=== PATIENT | female | born 1960 | race Caucasian/White ===

== ENCOUNTER 2017-01-17 17:03 | Observation (INO) | payer OTHER ==
--- NOTE | ~2017-01-17 | HP ---
Unit #: [id number] #: [id number] Patient: TATO JOE [id number] [address] [address] [id number] MR#: [id number] NAME: TATO JOE ROOM: 71014 Age: 56 Sex: F Admission Date: 01/17/2017 : 1960 Attending Physician: Marina Joyner M.D. Primary Care Physician: Yousif Rosales M.D. HISTORY AND PHYSICAL CHIEF COMPLAINT Abdominal pain. HISTORY OF PRESENT ILLNESS The patient is a 56-year-old female with past medical history of chronic pancreatitis, hypertension, hyperlipidemia, migraine headaches, herpes zoster, B12 deficiency, skin cancer, depression, who presented to the emergency department for evaluation of the above. The patient states she has had a 2- to 3-day history of abdominal pain. She states that it is in the upper abdomen. She describes it as "sharp," it is constant in nature, there are no exacerbating or alleviating factors. It has been increasing in intensity. She states that it is similar to when she has had pancreatitis in the past. She denies any fever. She has had chills. She denies any nausea or vomiting. She states that her bowel movements are normal. Amylase and lipase were normal. She was given morphine and Zofran as well as a liter of normal saline. She is being admitted to [facility] for evaluation and further treatment. PAST MEDICAL HISTORY 1. Admission to [facility] 12/12 through 12/15/2016 for vugys-rp-uiexqze recurrent pancreatitis. She underwent ERCP with stent placement during that admission. 2. Chronic pancreatitis followed by Dr. Balderas. 3. Hypertension. 4. Hyperlipidemia. 5. Migraine headaches. 6. Herpes zoster. 7. B12 deficiency. 8. Skin cancer. 9. Depression. PAST SURGICAL HISTORY 1. Excision of skin cancer. 2. Hysterectomy. 3. Lipoma removal. 4. Laparoscopic cholecystectomy. 5. ERCP with pancreatic stent placement. ALLERGIES 1. Triptans. 2. Naproxen. Unit #: [id number] #: [id number] Patient: TATO JOE 3. Tramadol. 4. Nitrofurantoin. 5. Zomig. HOME MEDICATIONS 1. Neurontin 800 mg t.i.d. 2. Amitriptyline 50 mg h.s. 3. Toprol XL 50 mg daily. 4. Amlodipine 10 mg daily. 5. Phenergan 25 mg t.i.d. p.r.n. 6. Fenofibrate three tablets daily. 7. Hydrocodone/acetaminophen 7.5/325 q.6 h. p.r.n. SOCIAL HISTORY The patient lives with her son and her who is a explosives truck driver. She quit smoking. There is no alcohol use. CODE STATUS is a FULL CODE. FAMILY HISTORY Notable for her mother having hypertension. REVIEW OF SYSTEMS A complete review of systems is negative except as indicated in the HPI. PHYSICAL EXAMINATION VITAL SIGNS: Temperature 98.2, pulse 86, respirations 16, blood pressure 181/97, oxygen saturation 98% on room air. GENERAL: The patient is a female who is awake and alert in no acute distress. HEENT: Head is atraumatic. Mucous membranes are dry. NECK: Supple. Trachea is midline. LUNGS: Clear to auscultation bilaterally with no increased work of breathing. HEART: Regular rate and rhythm. ABDOMEN: Soft. She is tender to palpation in the epigastric area. Bowel sounds present in all four quadrants. EXTREMITIES: Nontender with no pedal edema. NEUROLOGIC: Patient is awake and alert. She follows commands. PSYCHIATRIC: Mood and affect are normal. Patient is cooperative. SKIN OF EXAMINED AREAS: Warm and dry. DIAGNOSTIC STUDIES LABORATORY: Complete blood count is completely normal. Comprehensive metabolic panel notable for sodium 134, potassium 3.4, amylase 2 and lipase 14. ASSESSMENT The patient is a 56-year-old female with: 1. Abdominal pain likely secondary to #2. 2. Chronic pancreatitis. 3. Hypokalemia. 4. Hypertension. 5. Hyperlipidemia. 6. Migraine headaches. 7. Herpes zoster. 8. B12 deficiency. 9. Skin cancer, status post excision. 10. Depression. 11. Former smoker. Unit #: [id number] #: [id number] Patient: TATO JOE PLAN 1. Admit for observation to intermediate level. 2. N.p.o. except medications. 3. Normal saline at 125 mL per hour. 4. P.r.n. morphine. 5. P.r.n. Zofran. 6. Check EKG and cardiac enzymes. 7. Check magnesium level. 8. Potassium magnesium protocol. 9. Check urinalysis with culture and sensitivity. 10. Consult Dr. Balderas regarding recurrent pancreatitis. 11. Repeat labs in the morning including magnesium. 12. SCDs for DVT prophylaxis. 13. Additional workup and consultants based on above. Dictated by Angeles Glass/sammy TD: 01/17/2017 20:40 JOB #: [id number] HISTORY AND PHYSICAL X Marina Joyner MD X HISTORY AND PHYSICAL
--- NOTE | ~2017-01-17 | DS ---
Unit #: [id number] #: [id number] Patient: TATO JOE [id number] [address] [address] [id number] I MR#: [id number] NAME: TATO JOE ROOM: 323 Age: 56 Sex: F Admission Date: 01/17/2017 : 1960 Discharge Date: 01/19/2017 Attending Physician: Remi Farooq M.D. Primary Care Physician: Yousif Rosales M.D. DISCHARGE SUMMARY REASON FOR ADMISSION Abdominal pain, acute on chronic pancreatitis. HISTORY OF PRESENT ILLNESS/HOSPITAL COURSE The patient is a 56-year-old female, admitted secondary to abdominal pain, acute on chronic pancreatitis exacerbation. While she was admitted, she was placed on IV fluids. Consultation was placed to Dr. Balderas for Gastroenterology Services as he had seen the patient in the past, he recommended only conservative medical management. Her diet was gradually transitioned from clear into regular, which she tolerated well. She continually received Dilaudid IV while she was here. She likely exhibits underlying narcotic dependence and/or drug-seeking behavior. In past admissions once her IV Dilaudid was discontinued, subsequently she has either left AMA or left under similar circumstances. I discussed with her and recommended a transition into regular diet as well as to discontinue her IV pain medications. We will give her new prescription for [place] 10/325 one tablet p.o. q.6 p.r.n., it is recommended that she follow up as an outpatient with pain management for ongoing care. FINAL DISCHARGE DIAGNOSES 1. Acute on chronic pancreatitis. 2. Abdominal pain. 3. Hypertension. 4. Hyperlipidemia. 5. Migraine history. 6. Herpes zoster. 7. B12 deficiency. 8. Prior history of skin cancer. 9. Depression. 10. Narcotic-seeking/drug-seeking behavior. 11. Endoscopic retrograde cholangiopancreatography in 12/2016 with stent placement. 12. Obesity. DIAGNOSTIC STUDIES LABORATORY RESULTS: Final discharge laboratory studies include Unit #: [id number] #: [id number] Patient: TATO JOE unremarkable creatinine, liver profile, as well as lipase which is 11. CBC shows a hemoglobin of 12.1, white count of 7.7. DISCHARGE MEDICATIONS [place] 10/325 one tablet p.o. q.6 p.r.n. #30 prescription given, fenofibrate three tablets p.o. daily, Toprol-XL 50 mg p.o. daily, Norvasc 10 mg p.o. daily, Phenergan 25 mg p.o. q.8 p.r.n., Elavil 50 mg p.o. q.h.s., and Neurontin 800 mg p.o. q.8. DISCHARGE CONDITION Stable. DISCHARGE DISPOSITION Home. Long-term prognosis, poor. Dictated by... Remi Farooq M.D. REYMUNDO/teodora TD: 01/20/2017 01:45 JOB #: [id number] DISCHARGE SUMMARY X Remi Farooq MD X DISCHARGE SUMMARY
--- NOTE | ~2017-01-17 | EKG ---
PATIENT: TATO JOE UNIT #: [id number] Ventricular Rate: 79 BPM Atrial Rate: 79 BPM P-R Interval: 162 ms QRS Duration: 88 ms Q-T Interval: 400 ms QTC Calculation(Bezet): 458 ms P Chaumont: 64 degrees Calculated R Chaum[place]: 52 degrees Calculated T Chaumont: 57 degrees Diagnosis Line: Normal sinus rhythm Diagnosis Line: Minimal voltage criteria for LVH, may be normal Diagnosis Line: variant Diagnosis Line: Borderline ECG Diagnosis Line: When compared with ECG of 07-DEC-2016 22:04, Diagnosis Line: No significant change was found Diagnosis Line: Confirmed by CARMEN BRAUN MD ([id number]) on Diagnosis Line: 01/18/2017 11:26:25 AM INTERPRETING MD: APARNA DEAL
[2017-01-17 16:57] LABS: BASOPHIL# 0.1 X10e3 (0-0.3); BASOPHIL% 0.7 % (0-2.5); DIFF IND NO; EOSINOPHIL% 0.5 % (0.0-7.0); HEMATOCRIT 39.1 % (35.0-45.0); LYMPHOCYTE# 2.1 X10e3 (1.0-3.5); LYMPHOCYTE% 22.6 % (17.0-45.0); MEAN CELL VOLUME 93.2 FL (83-96); MEAN CORPUSCULAR HGB CONC 33.3 g/dL (30-36); MEAN PLATELET VOLUME 6.7 FL (6.5-11.5); MONOCYTE# 0.3 X10e3 (0-1.0); MONOCYTE% 3.7 % (3.0-12.0); NEUTROPHIL# 6.6 X10e3 (1.5-7.1); NEUTROPHIL% 72.5 % (40-75); PLATELET COUNT 395 X10e3 (140-420); WHITE BLOOD COUNT 9.2 X10e3 (4.0-10.5)
[~2017-01-17 17:03] MED LIST: ALPRAZOLAM PO; AMITRIPTYLINE H50 MG PO; AMITRYPTYLINE PO; AMLODIPINE BESY10 MG PO; ASPIRIN81 M2 PO; ATARAX PO; BENTYL20 MG PO; BISACODYL10 MG/SUP3 PR; CATAPRES0.3 MG PO; CELEXA10 MG PO; CREON 101 CA1 PO; CREON DR 3,0001 EACH PO; CYANOCOBALAM1000 MCG PO; DAZIDOX10 MG PO; DOCUSATE SODIU100 MG PO; FENOFIBRATE67 MG PO; FIORINAL CAPSUL1 CAP PO; FLEXERIL10 M1 PO; FLEXERIL10 MG PO; GENTLE LAXATIVE10 MG PR; HYDRALAZINE HC100 MG PO; HYDROCODON-ACE1 EAC7 PO; HYDROCODON-ACE1 EAC9 PO; HYDROCODONE-APA1 T54 PO; HYDROXYZINE HCL25 M1 PO; IBUPROFEN; IBUPROFEN800 MG PO; KENALOG63 GM TOP; LEVAQUIN750 MG PO; LOMOTIL TABLET1 TAB PO; LOPRESSOR PO; MAXZIDE 37.5 M1 EACH PO; MAXZIDE-25 MG T1 TAB PO; METOPROLOL SUCC50 MG PO; MOTRIN20 MG/ML PO; NEURONTIN PO; NEURONTIN300 MG PO; NEURONTIN600 MG DOB; NEURONTIN600 MG PO; NEURONTIN800 MG PO; NICODERM C1 PATCH .1 TD; NORVASC PO; NORVASC10 MG PO; OXYCODONE HCL5 M1 PO; PERCOCET 5-3251 TAB PO; PERCOCET5/325 PO; PHENERGAN25 M1 DOB; PHENERGAN25 M1 PO; PRAVACHOL PO; PRINIVIL20 M1 PO; PROTONIX PO; ROXICODONE5 M1 PO; ROXICODONE5 MG PO; TOPROL XL50 MG PO; TRIAMTERENE PO; TRIAMTERENE-HCT1 TA8 PO; VOLTAREN75 MG PO; XANAX0.5 MG PO
[2017-01-17 17:41] LABS: ALKALINE PHOSPHATASE 83 U/L (32-92); ALT (SGPT) 9 U/L (10-40); AMYLASE 2 U/L (0-46); AST (SGOT) 16 U/L (10-42); BILIRUBIN, DIRECT 0.1 mg/dL (0.0-0.2); BILIRUBIN,INDIRECT 0.2 mg/dL (0.0-0.9); BILIRUBIN,TOTAL 0.3 mg/dL (0.2-2.0); BLOOD UREA NITROGEN 5 mg/dL (9-23); BUN/CREATININE RATIO 8.33; CALCIUM SERUM 9.1 mg/dL (8.4-10.2); CARBON DIOXIDE 24 mmol/L (22-31); CHLORIDE 101 mmol/L (100-111); CREATININE SERUM 0.6 mg/dL (0.6-1.4); GLOM FILT RATE Estimated ABOVE60 mL/min (>60); GLUCOSE FASTING 99 mg/dL (70-110); LIPASE 14 U/L (22-51); POTASSIUM 3.4 mmol/L (3.5-5.1); SODIUM 134 mmol/L (135-145)
[2017-01-17 20:21] LABS: URINE SOURCE CLEAN CATCH
[2017-01-17 20:52] LABS: MAGNESIUM 1.8 mg/dL (1.6-3.0)
[2017-01-17 21:28] LABS: URINE BILIRUBIN NEG (NEG); URINE BLOOD NEG (NEG); URINE GLUCOSE NORM (NORM); URINE KETONE NEG (NEG); URINE LEUKOCYTE ESTERASE NEG (NEG); URINE NITRATE NEG (NEG); URINE PH 6.5 (5-8); URINE PROTEIN NEG (NEG); URINE SPECIFIC GRAVITY 1.015 (1.003-1.035); URINE UROBILINOGEN NORM (NORM)
[2017-01-17 21:30] LABS: URINE APPEARANCE CLEAR; URINE COLOR YELLOW
[2017-01-17 21:31] LABS: CULTURE INDICATED? NO
[2017-01-18 03:48] LABS: CK TOTAL 28 IU/L (26-140)
[2017-01-18 07:01] LABS: HEMATOCRIT 35.1 % (35.0-45.0); HEMOGLOBIN 11.6 gm/dL (12.0-16.0); MEAN CORPUSCULAR HEMOGLOBIN 31.1 PG (28-34); MEAN CORPUSCULAR HGB CONC 33.1 g/dL (30-36); MEAN PLATELET VOLUME 6.8 FL (6.5-11.5); RED BLOOD COUNT 3.74 X10e (3.90-5.30); WHITE BLOOD COUNT 6.5 X10e3 (4.0-10.5)
[2017-01-18 08:15] LABS: ALBUMIN SERUM 3.1 g/dL (3.5-5.0); ALKALINE PHOSPHATASE 66 U/L (32-92); ALT (SGPT) 9 U/L (10-40); AST (SGOT) 13 U/L (10-42); BILIRUBIN,TOTAL 0.4 mg/dL (0.2-2.0); BLOOD UREA NITROGEN <5 mg/dL (9-23); BUN/CREATININE RATIO 8.33; CALCIUM SERUM 8.3 mg/dL (8.4-10.2); CARBON DIOXIDE 23 mmol/L (22-31); CHLORIDE 110 mmol/L (100-111); CREATININE SERUM 0.6 mg/dL (0.6-1.4); GLOM FILT RATE Estimated ABOVE60 mL/min (>60); GLUCOSE FASTING 80 mg/dL (70-110); MAGNESIUM 1.8 mg/dL (1.6-3.0); POTASSIUM 3.6 mmol/L (3.5-5.1); PROTEIN TOTAL SERUM 5.4 g/dL (6.0-8.3); SODIUM 140 mmol/L (135-145)
[2017-01-18 09:01] LABS: CK TOTAL 27 IU/L (26-140)
[2017-01-18 18:15] LABS: AMPHETAMINE NEG (NEG); BARBITURATES NEG (NEG); BENZODIAZEPINES NEG (NEG); COCAINE NEG (NEG); MARIJUANA NEG (NEG); OPIATES POS (NEG); TRICYCLIC ANTIDEPRESSANTS POS (NEG); U METHADONE NEG (NEG)
[2017-01-19 06:28] LABS: HEMATOCRIT 36.7 % (35.0-45.0); HEMOGLOBIN 12.1 gm/dL (12.0-16.0); MEAN CELL VOLUME 94.5 FL (83-96); MEAN CORPUSCULAR HEMOGLOBIN 31.3 PG (28-34); MEAN CORPUSCULAR HGB CONC 33.1 g/dL (30-36); MEAN PLATELET VOLUME 7.3 FL (6.5-11.5); RED BLOOD COUNT 3.88 X10e (3.90-5.30); RED CELL DISTRIBUTION WIDTH 14.9 % (11.0-15.5); WHITE BLOOD COUNT 7.7 X10e3 (4.0-10.5)
[2017-01-19 07:02] LABS: ALBUMIN SERUM 3.5 g/dL (3.5-5.0); ALKALINE PHOSPHATASE 67 U/L (32-92); ALT (SGPT) 7 U/L (10-40); AST (SGOT) 13 U/L (10-42); BILIRUBIN,TOTAL 0.4 mg/dL (0.2-2.0); BLOOD UREA NITROGEN 5 mg/dL (9-23); BUN/CREATININE RATIO 7.14; CALCIUM SERUM 9.2 mg/dL (8.4-10.2); CARBON DIOXIDE 26 mmol/L (22-31); CHLORIDE 108 mmol/L (100-111); CREATININE SERUM 0.7 mg/dL (0.6-1.4); GLOM FILT RATE Estimated ABOVE60 mL/min (>60); GLUCOSE FASTING 79 mg/dL (70-110); LIPASE 11 U/L (22-51); POTASSIUM 4.2 mmol/L (3.5-5.1); PROTEIN TOTAL SERUM 6.1 g/dL (6.0-8.3); SODIUM 142 mmol/L (135-145)
== END 2017-01-19 13:45 | disposition home or self-care (01) ==
LOC: CED 17:03 → CEDOF 19:41 → C3A PCU 21:41
PROVIDERS: Emergency Medicine; Family Medicine
DX: K85.90 Acute pancreatitis without necrosis or infection, unspecified (principal); K86.1 Other chronic pancreatitis; R10.9 Unspecified abdominal pain; I10 Essential (primary) hypertension; E78.5 Hyperlipidemia, unspecified; B02.9 Zoster without complications; E53.8 Deficiency of other specified B group vitamins; Z85.828 Personal history of other malignant neoplasm of skin; F32.9 Major depressive disorder, single episode, unspecified; E87.6 Hypokalemia; Z76.5 Malingerer [conscious simulation]; E66.9 Obesity, unspecified; Z87.891 Personal history of nicotine dependence; Z90.49 Acquired absence of other specified parts of digestive tract; Z90.710 Acquired absence of both cervix and uterus
CPT/HCPCS: 36415; 80048; 80053; 80076; 80307; 81003; 82150; 82550; 83690; 83735; 84132; 84484; 85025; 85027; 93005; 96361; 96365; 96366; 96374; 96375; 96376; 99285; G0378; J1170; J2270; J2405; J2543

== ENCOUNTER 2017-01-19 16:05 | Emergency (ER) | payer OTHER ==
[2017-01-19 16:22] LABS: BASOPHIL% 0.5 % (0-2.5); EOSINOPHIL# 0.2 X10e3 (0-0.7); EOSINOPHIL% 2.5 % (0.0-7.0); HEMATOCRIT 41.1 % (35.0-45.0); HEMOGLOBIN 13.5 gm/dL (12.0-16.0); LYMPHOCYTE# 2.3 X10e3 (1.0-3.5); LYMPHOCYTE% 27.1 % (17.0-45.0); MEAN CELL VOLUME 94.3 FL (83-96); MEAN CORPUSCULAR HGB CONC 32.9 g/dL (30-36); MEAN PLATELET VOLUME 7.4 FL (6.5-11.5); MONOCYTE# 0.4 X10e3 (0-1.0); MONOCYTE% 4.2 % (3.0-12.0); NEUTROPHIL# 5.6 X10e3 (1.5-7.1); NEUTROPHIL% 65.7 % (40-75); PLATELET COUNT 374 X10e3 (140-420); RED BLOOD COUNT 4.36 X10e (3.90-5.30); RED CELL DISTRIBUTION WIDTH 14.7 % (11.0-15.5); WHITE BLOOD COUNT 8.5 X10e3 (4.0-10.5)
[2017-01-19 16:29] LABS: DIFF IND NO
[2017-01-19 17:08] LABS: ALKALINE PHOSPHATASE 79 U/L (32-92); ALT (SGPT) 10 U/L (10-40); AST (SGOT) 17 U/L (10-42); BILIRUBIN, DIRECT 0.1 mg/dL (0.0-0.2); BILIRUBIN,INDIRECT 0.4 mg/dL (0.0-0.9); BILIRUBIN,TOTAL 0.5 mg/dL (0.2-2.0); BLOOD UREA NITROGEN 7 mg/dL (9-23); CALCIUM SERUM 9.3 mg/dL (8.4-10.2); CARBON DIOXIDE 25 mmol/L (22-31); CHLORIDE 98 mmol/L (100-111); GLOM FILT RATE Estimated ABOVE60 mL/min (>60); GLUCOSE FASTING 137 mg/dL (70-110); LIPASE 17 U/L (22-51); POTASSIUM 3.4 mmol/L (3.5-5.1); PROTEIN TOTAL SERUM 7.2 g/dL (6.0-8.3); SODIUM 134 mmol/L (135-145)
[2017-01-19 17:09] LABS: AMYLASE 5 U/L (0-46)
== END 2017-01-19 18:56 | disposition home or self-care (01) ==
LOC: CED 16:05
PROVIDERS: Emergency Medicine
DX: K86.1 Other chronic pancreatitis (principal); I10 Essential (primary) hypertension; E78.5 Hyperlipidemia, unspecified; F17.200 Nicotine dependence, unspecified, uncomplicated; Z79.899 Other long term (current) drug therapy; Z88.8 Allergy status to other drugs, medicaments and biological substances; Z88.6 Allergy status to analgesic agent; Z88.5 Allergy status to narcotic agent
CPT/HCPCS: 36415; 80048; 80076; 82150; 83690; 85025; 96361; 96374; 99284; J2405

== ENCOUNTER 2017-02-21 18:28 | Emergency (ER) | payer OTHER ==
--- NOTE | ~2017-02-21 | CT2 ---
[facility] A Service of [facility] RADIOLOGY TEXT RESULTS PATIENT: TATO JOE LOCATION: [facility] : [birth year] UNIT #: [id number] AGE: [address]: Dallsa Bhat MD SEX: F ORDER DR: [id number] [facility] [address] [place], [place] [address] [id number] MR#: [id number] Acc #: [id number] NAME: TATO JOE : 1960 SEX: F STUDY DATE/TIME: 02/21/2017 19:17 UNIT: [facility] ROOM: STUDY DESCRIPTION: CT Abd and Pelv W Cont Attending Physician: Dallas Bhat M.D. Ordering Physician: Dallas Bhat M.D. Primary Care Physician: Yousif Rosales M.D. MEDICAL IMAGING REPORT This report is preliminary unless electronic signature is present EXAM CT abdomen and pelvis with contrast. INDICATION 56-year-old female with abdominal pain today. History of pancreatitis. TECHNIQUE CT of the abdomen and pelvis was performed following administration of IV contrast. Coronal and sagittal reformatted images were obtained. This CT exam was performed with one or more of the following radiation dose reduction techniques: automatic exposure control, adjustment of mA and/or kV according to patient size, and iterative reconstruction. COMPARISON 12/08/2016 FINDINGS There is minimal scarring or atelectasis within the lung bases. Liver, gallbladder, spleen, kidneys and adrenal glands are unremarkable. Stable crescentic fluid collection in the region of the head of the pancreas which may be represent an old pseudocyst given the history of pancreatitis. No evidence for any acute pancreatitis on today's study. Tiny hiatal hernia. PELVIS: Colon is unremarkable. There appears to have been a prior appendectomy. No free fluid. Hysterectomy. Bone windows are unremarkable. IMPRESSION There is no acute intraabdominal or pelvic abnormality. No evidence of acute pancreatitis. [facility] A Service of [facility] RADIOLOGY TEXT RESULTS PATIENT: TATO JOE LOCATION: [facility] : [birth year] UNIT #: [id number] AGE: [address]: Dallas Bhat MD SEX: F ORDER DR: Dictated by... Clement Zuleta M.D. THIS IS AN ELECTRONICALLY VERIFIED REPORT Clement Zuleta M.D. at 02/22/2017 10:04 AM JUANITA/valorie TD: 02/21/2017 23:42 JOB #: [id number] MEDICAL IMAGING REPORT Page 1 of 1 COPY
[2017-02-21 17:34] LABS: BASOPHIL% 0.4 % (0-2.5); EOSINOPHIL# 0.1 X10e3 (0-0.7); EOSINOPHIL% 1.2 % (0.0-7.0); HEMATOCRIT 40.9 % (35.0-45.0); HEMOGLOBIN 13.8 gm/dL (12.0-16.0); LYMPHOCYTE# 2.1 X10e3 (1.0-3.5); LYMPHOCYTE% 25.8 % (17.0-45.0); MEAN CELL VOLUME 94.7 FL (83-96); MEAN CORPUSCULAR HGB CONC 33.8 g/dL (30-36); MEAN PLATELET VOLUME 7.3 FL (6.5-11.5); MONOCYTE# 0.3 X10e3 (0-1.0); NEUTROPHIL# 5.6 X10e3 (1.5-7.1); NEUTROPHIL% 68.6 % (40-75); PLATELET COUNT 375 X10e3 (140-420); RED BLOOD COUNT 4.32 X10e (3.90-5.30); RED CELL DISTRIBUTION WIDTH 14.4 % (11.0-15.5); WHITE BLOOD COUNT 8.2 X10e3 (4.0-10.5)
[2017-02-21 17:39] LABS: DIFF IND NO
[2017-02-21 18:02] LABS: ALBUMIN SERUM 4.2 g/dL (3.5-5.0); ALKALINE PHOSPHATASE 76 U/L (32-92); ALT (SGPT) 11 U/L (10-40); AST (SGOT) 17 U/L (10-42); BILIRUBIN,TOTAL 0.3 mg/dL (0.2-2.0); BLOOD UREA NITROGEN 7 mg/dL (9-23); BUN/CREATININE RATIO 8.75; CALCIUM SERUM 9.3 mg/dL (8.4-10.2); CARBON DIOXIDE 24 mmol/L (22-31); CHLORIDE 98 mmol/L (100-111); CREATININE SERUM 0.8 mg/dL (0.6-1.4); GLOM FILT RATE Estimated 82.5 mL/min (>60); GLUCOSE FASTING 105 mg/dL (70-110); LIPASE 16 U/L (22-51); POTASSIUM 3.8 mmol/L (3.5-5.1); PROTEIN TOTAL SERUM 7.6 g/dL (6.0-8.3); SODIUM 131 mmol/L (135-145)
[2017-02-21 18:03] LABS: BILIRUBIN, DIRECT <0.1 mg/dL (0.0-0.2); BILIRUBIN,INDIRECT 0.2 mg/dL (0.0-0.9)
[2017-02-21 20:33] LABS: URINE SOURCE CLEAN CATCH
[2017-02-21 20:39] LABS: URINE APPEARANCE CLEAR; URINE BILIRUBIN NEG (NEG); URINE BLOOD NEG (NEG); URINE COLOR YELLOW; URINE GLUCOSE NEG (NEG); URINE KETONE NEG (NEG); URINE LEUKOCYTE ESTERASE NEG (NEG); URINE NITRATE NEG (NEG); URINE PROTEIN NEG (NEG); URINE SPECIFIC GRAVITY 1.015 (1.003-1.035); URINE UROBILINOGEN 0.2 MG/DL (NEG)
[2017-02-21 20:44] LABS: CULTURE INDICATED? NO
== END 2017-02-21 21:40 | disposition home or self-care (01) ==
LOC: CED 18:28
DX: R10.9 Unspecified abdominal pain (principal); I10 Essential (primary) hypertension; F17.200 Nicotine dependence, unspecified, uncomplicated; Z88.5 Allergy status to narcotic agent; Z88.8 Allergy status to other drugs, medicaments and biological substances
CPT/HCPCS: 36415; 74177; 80048; 80076; 81003; 83690; 85025; 99284; J1170; J2405; Q9967

== ENCOUNTER → 2017-02-28 | Outpatient (CLI) | payer OTHER ==
[~2017-02-28] MED LIST changes: +AMITRYPTYLINE; +AMLODIPINE-OLM1 EACH; +FENOFIBRATE50 MG PO; +NEURONTIN300 MG; +OXAYDO7.5 MG PO; +PHENERGAN12.5 MG
--- NOTE | ~2017-02-28 | NM19 ---
[facility] A Service of [facility] RADIOLOGY TEXT RESULTS PATIENT: TATO JOE LOCATION: [facility] : 60 UNIT #: [id number] AGE: [address]: Lesa Briones MD SEX: F ORDER DR: [id number] [facility] [address] [facility] [place], [place] [address] [id number] O MR#: [id number] Acc #: [id number] NAME: TATO JOE : 1960 SEX: F STUDY DATE/TIME: 02/28/2017 9:09 UNIT: [facility] ROOM: STUDY DESCRIPTION: OK Gastric Emptying Study Attending Physician: Lesa Briones M.D. Referring Physician: Lesa Briones M.D. Ordering Physician: Lesa Briones M.D. Primary Care Physician: Yousif Rosales M.D. MEDICAL IMAGING REPORT This report is preliminary unless electronic signature is present EXAM Gastric emptying scan, 02/28/2017 HISTORY Abdomen pain with nausea and vomiting for 1 year. Pancreatitis. FINDINGS The patient ingested 511 mcCi of technetium 99m tagged sulfur colloid in eggs. Images of the upper abdomen were obtained for 2 hours. The stomach was 96% empty after 2 hours of imaging. Normal range is greater than 60% empty after 2 hours of imaging and greater than 90% empty after 4 hours of imaging. IMPRESSION Normal gastric emptying scan. Dictated by... Fady Salcido M.D. THIS IS AN ELECTRONICALLY VERIFIED REPORT Fady Salcido M.D. at 03/01/2017 8:04 AM Ghazal TD: 02/28/2017 13:52 JOB #: [id number] MEDICAL IMAGING REPORT Page 1 of 1 COPY
== END | disposition home or self-care (01) ==
LOC: CNUC 08:32
DX: R10.9 Unspecified abdominal pain (principal); R11.0 Nausea
CPT/HCPCS: 78264; A9541

== ENCOUNTER 2017-03-21 13:19 | Emergency (ER) | payer OTHER ==
[~2017-03-21 13:19] MED LIST changes: -AMITRYPTYLINE; -AMLODIPINE-OLM1 EACH; -FENOFIBRATE50 MG PO; -NEURONTIN300 MG; -OXAYDO7.5 MG PO; -PHENERGAN12.5 MG
[2017-03-21 15:15] LABS: BASOPHIL% 0.4 % (0-2.5); EOSINOPHIL# 0.1 X10e3 (0-0.7); EOSINOPHIL% 1.6 % (0.0-7.0); HEMATOCRIT 39.6 % (35.0-45.0); HEMOGLOBIN 13.4 gm/dL (12.0-16.0); LYMPHOCYTE# 2.3 X10e3 (1.0-3.5); LYMPHOCYTE% 30.8 % (17.0-45.0); MEAN CORPUSCULAR HEMOGLOBIN 31.8 PG (28-34); MEAN CORPUSCULAR HGB CONC 33.8 g/dL (30-36); MEAN PLATELET VOLUME 7.5 FL (6.5-11.5); MONOCYTE# 0.4 X10e3 (0-1.0); NEUTROPHIL# 4.6 X10e3 (1.5-7.1); NEUTROPHIL% 62.2 % (40-75); PLATELET COUNT 341 X10e3 (140-420); RED BLOOD COUNT 4.21 X10e (3.90-5.30); WHITE BLOOD COUNT 7.5 X10e3 (4.0-10.5)
[2017-03-21 15:17] LABS: DIFF IND NO
[2017-03-21 15:39] LABS: ALKALINE PHOSPHATASE 77 U/L (32-92); ALT (SGPT) 10 U/L (10-40); AMYLASE 8 U/L (0-46); AST (SGOT) 14 U/L (10-42); BILIRUBIN, DIRECT <0.1 mg/dL (0.0-0.2); BILIRUBIN,INDIRECT 0.2 mg/dL (0.0-0.9); BILIRUBIN,TOTAL 0.3 mg/dL (0.2-2.0); BLOOD UREA NITROGEN 7 mg/dL (9-23); CARBON DIOXIDE 24 mmol/L (22-31); CHLORIDE 96 mmol/L (100-111); CREATININE SERUM 0.7 mg/dL (0.6-1.4); GLOM FILT RATE Estimated 96.9 mL/min (>60); GLUCOSE FASTING 87 mg/dL (70-110); LIPASE 14 U/L (22-51); POTASSIUM 3.4 mmol/L (3.5-5.1); PROTEIN TOTAL SERUM 6.9 g/dL (6.0-8.3); SODIUM 130 mmol/L (135-145)
[2017-03-21 15:57] LABS: URINE SOURCE CLEAN CATCH
[2017-03-21 16:01] LABS: URINE APPEARANCE CLEAR; URINE BILIRUBIN NEG (NEG); URINE BLOOD NEG (NEG); URINE COLOR YELLOW; URINE GLUCOSE NEG (NEG); URINE KETONE NEG (NEG); URINE LEUKOCYTE ESTERASE NEG (NEG); URINE NITRATE NEG (NEG); URINE PROTEIN NEG (NEG); URINE SPECIFIC GRAVITY 1.006 (1.003-1.035); URINE UROBILINOGEN 0.2 MG/DL (NEG)
[2017-03-21 16:09] LABS: CULTURE INDICATED? NO
== END 2017-03-21 16:47 | disposition home or self-care (01) ==
LOC: CED 13:19
PROVIDERS: Emergency Medicine
DX: E87.1 Hypo-osmolality and hyponatremia (principal); R10.9 Unspecified abdominal pain; G89.29 Other chronic pain; E78.5 Hyperlipidemia, unspecified; I10 Essential (primary) hypertension; F41.9 Anxiety disorder, unspecified; F17.210 Nicotine dependence, cigarettes, uncomplicated; Z90.89 Acquired absence of other organs; Z88.5 Allergy status to narcotic agent; Z88.8 Allergy status to other drugs, medicaments and biological substances
CPT/HCPCS: 36415; 80048; 80076; 81003; 82150; 83690; 85025; 96361; 96374; 96375; 99284; C9113; J0595; J1885; J2405

== ENCOUNTER 2017-03-23 15:33 | Emergency (ER) | payer OTHER ==
[2017-03-23 15:58] LABS: BASOPHIL# 0.1 X10e3 (0-0.3); BASOPHIL% 0.6 % (0-2.5); EOSINOPHIL# 0.1 X10e3 (0-0.7); EOSINOPHIL% 0.7 % (0.0-7.0); HEMATOCRIT 40.3 % (35.0-45.0); HEMOGLOBIN 13.5 gm/dL (12.0-16.0); LYMPHOCYTE# 2.6 X10e3 (1.0-3.5); LYMPHOCYTE% 28.7 % (17.0-45.0); MEAN CELL VOLUME 94.6 FL (83-96); MEAN CORPUSCULAR HEMOGLOBIN 31.6 PG (28-34); MEAN CORPUSCULAR HGB CONC 33.4 g/dL (30-36); MEAN PLATELET VOLUME 7.2 FL (6.5-11.5); MONOCYTE# 0.4 X10e3 (0-1.0); NEUTROPHIL# 6.1 X10e3 (1.5-7.1); PLATELET COUNT 397 X10e3 (140-420); RED BLOOD COUNT 4.26 X10e (3.90-5.30); WHITE BLOOD COUNT 9.2 X10e3 (4.0-10.5)
[2017-03-23 16:02] LABS: DIFF IND NO
[2017-03-23 16:21] LABS: ALBUMIN SERUM 4.4 g/dL (3.5-5.0); ALKALINE PHOSPHATASE 87 U/L (32-92); ALT (SGPT) 10 U/L (10-40); AST (SGOT) 14 U/L (10-42); BILIRUBIN,TOTAL 0.5 mg/dL (0.2-2.0); BLOOD UREA NITROGEN 6 mg/dL (9-23); CALCIUM SERUM 9.3 mg/dL (8.4-10.2); CARBON DIOXIDE 23 mmol/L (22-31); CHLORIDE 97 mmol/L (100-111); CREATININE SERUM 0.8 mg/dL (0.6-1.4); GLOM FILT RATE Estimated 82.5 mL/min (>60); GLUCOSE FASTING 116 mg/dL (70-110); LIPASE 16 U/L (22-51); POTASSIUM 3.3 mmol/L (3.5-5.1); PROTEIN TOTAL SERUM 7.2 g/dL (6.0-8.3); SODIUM 131 mmol/L (135-145)
[2017-03-23 16:33] LABS: BILIRUBIN, DIRECT <0.1 mg/dL (0.0-0.2); BILIRUBIN,INDIRECT 0.4 mg/dL (0.0-0.9)
== END 2017-03-23 18:27 | disposition home or self-care (01) ==
LOC: CED 15:33
DX: K85.90 Acute pancreatitis without necrosis or infection, unspecified (principal); K86.1 Other chronic pancreatitis; G89.29 Other chronic pain; F17.200 Nicotine dependence, unspecified, uncomplicated
CPT/HCPCS: 36415; 80048; 80076; 83690; 85025; 96372; 99284; J1170; J2405

== ENCOUNTER 2017-04-16 15:17 | Emergency (ER) | payer OTHER ==
[2017-04-16] MEDS ORDERED: PHENERGAN12.5 MG (15:22)
[2017-04-16] MEDS ORDERED: OXAYDO7.5 MG PO (15:22)
[2017-04-16] MEDS ORDERED: AMLODIPINE-OLM1 EACH (15:22)
[2017-04-16] MEDS ORDERED: NEURONTIN300 MG (15:22)
[2017-04-16] MEDS ORDERED: AMITRYPTYLINE (15:23)
== END 2017-04-16 16:30 | disposition home or self-care (01) ==
LOC: SED 15:17
DX: J02.0 Streptococcal pharyngitis (principal); F17.210 Nicotine dependence, cigarettes, uncomplicated; Z88.6 Allergy status to analgesic agent; Z88.8 Allergy status to other drugs, medicaments and biological substances
CPT/HCPCS: 87880; 99283; J0561

== ENCOUNTER 2017-05-19 20:19 | Emergency (ER) | payer OTHER ==
[~2017-05-19 20:19] MED LIST changes: +AMITRYPTYLINE; +AMLODIPINE-OLM1 EACH; +NEURONTIN300 MG; +OXAYDO7.5 MG PO; +PHENERGAN12.5 MG
[2017-05-19 21:43] LABS: BASOPHIL# 0.1 X10e3 (0-0.3); BASOPHIL% 0.8 % (0-2.5); EOSINOPHIL# 0.2 X10e3 (0-0.7); HEMATOCRIT 40.7 % (35.0-45.0); HEMOGLOBIN 14.1 gm/dL (12.0-16.0); LYMPHOCYTE# 3.6 X10e3 (1.0-3.5); LYMPHOCYTE% 38.3 % (17.0-45.0); MEAN CELL VOLUME 91.3 FL (83-96); MEAN CORPUSCULAR HEMOGLOBIN 31.6 PG (28-34); MEAN CORPUSCULAR HGB CONC 34.6 g/dL (30-36); MEAN PLATELET VOLUME 7.4 FL (6.5-11.5); MONOCYTE# 0.5 X10e3 (0-1.0); MONOCYTE% 5.2 % (3.0-12.0); NEUTROPHIL# 5.1 X10e3 (1.5-7.1); NEUTROPHIL% 53.7 % (40-75); PLATELET COUNT 383 X10e3 (140-420); RED BLOOD COUNT 4.46 X10e (3.90-5.30); RED CELL DISTRIBUTION WIDTH 14.2 % (11.0-15.5); WHITE BLOOD COUNT 9.5 X10e3 (4.0-10.5)
[2017-05-19 21:48] LABS: DIFF IND NO
[2017-05-19 22:10] LABS: ALBUMIN SERUM 4.2 g/dL (3.5-5.0); BILIRUBIN, DIRECT 0.1 mg/dL (0.0-0.2); BILIRUBIN,INDIRECT 0.3 mg/dL (0.0-0.9); BILIRUBIN,TOTAL 0.4 mg/dL (0.2-2.0); CALCIUM SERUM 9.2 mg/dL (8.4-10.2); CREATININE SERUM 0.7 mg/dL (0.6-1.4); GLOM FILT RATE Estimated 96.9 mL/min (>60); POTASSIUM 3.6 mmol/L (3.5-5.1); PROTEIN TOTAL SERUM 7.7 g/dL (6.0-8.3)
[2017-05-20] MEDS ORDERED: NEURONTIN800 MG PO (21:46)
[2017-05-20] MEDS ORDERED: AMITRYPTYLINE PO (21:47)
[2017-05-20] MEDS ORDERED: FENOFIBRATE50 MG PO (21:49)
== END 2017-05-19 22:00 | disposition left against medical advice (07) ==
LOC: CED 20:19
DX: Z53.21 Procedure and treatment not carried out due to patient leaving prior to being seen by health care provider (principal)
CPT/HCPCS: 80048; 80076; 82150; 83690; 85025

== ENCOUNTER 2017-05-20 14:04 | Inpatient (IN) | payer OTHER ==
[~2017-05-20] VITALS: Ht 157.5 cm; Wt 54.0 kg
--- NOTE | ~2017-05-20 | DS ---
Unit #: [id number] #: [id number] Patient: TATO JOE [id number] [address] [place], [place] [address] [id number] I MR#: [id number] NAME: TATO JOE ROOM: 47 Age: 56 Sex: F Admission Date: 05/20/2017 : 1960 Discharge Date: 05/23/2017 Attending Physician: Marie Mar M.D. Primary Care Physician: Yousif Rosales M.D. DISCHARGE SUMMARY PRIMARY CARE PROVIDER Dr. Rosales. PRINCIPAL DIAGNOSES 1. Epigastric pain of undetermined etiology. 2. Mild gastritis. 3. History of chronic pancreatitis without evidence of acute exacerbation. 4. Stable pancreatic pseudocyst. 5. Hyperlipidemia. 6. Mild protein malnutrition. 7. Hypertension. 8. Tobaccoism. PRIMARY CARE COORDINATOR Dr. Pitt, General Surgery. PROCEDURES 1. Esophagogastroduodenoscopy on 05/22/2017 with mild gastritis and small hiatal hernia, otherwise study was unremarkable. 2. HIDA scan, which was negative on . 3. CT scan of abdomen and pelvis with contrast on 05/20/2017 with increased caliber of common bile duct, stable size of pancreatic pseudocyst, no evidence of acute pancreatitis, a 1.7 cm nodule density in the fat of the left buttock, small hiatal hernia noted. CLINICAL HISTORY AND HOSPITAL COURSE Ms. Rees is a 56-year-old female, who presents to the emergency department for complaints of abdominal pain, nausea, and vomiting. Please refer H and P for further details. The patient has a history of pancreatitis with questionable concern about pancreas divisum that has been worked up as an outpatient. She underwent CT scan in the emergency department, which was unremarkable, and amylase and lipase were also unremarkable. However, she continued to have significant abdominal pain and was subsequently admitted for further evaluation. LSA ultimately saw the patient, while covering for Dr. Balderas. The patient underwent EGD with findings of gastritis, but this was otherwise unremarkable. HIDA scan was also done and this was unremarkable. The patient had a HIDA scan earlier this spring and that was also normal. She also underwent gastric emptying study in 02/2017, which was normal. All the patient's laboratory values remained normal as well. The source of her abdominal pain was unclear. I will note she tolerated clears without difficulty, but states she always had trouble with the regular diet though Unit #: [id number] #: [id number] Patient: TATO JOE I did see her eat grilled cheese earlier today. She is not vomiting. She is clinically stable and I think she can be discharged home on her chronic pain medications with increasing her diet as tolerated and further workup can be done by Dr. Balderas as an outpatient. DISCHARGE CONDITION Stable. DISCHARGE STATUS Discharged to home. DISCHARGE MEDICATIONS Gabapentin 800 mg p.o. t.i.d., amitriptyline 25 mg at bedtime, Fenofibrate at home dose daily, Norvasc/olmesartan 5/20 mg one daily, oxycodone 7.5 mg p.o. q.i.d. p.r.n. for pain, and Protonix 40 mg p.o. daily with two refills. DISCHARGE INSTRUCTIONS The patient was instructed to follow a low-fat diet, which she can increase as tolerated to regular. She can increase her activity as tolerated as well. FOLLOWUP The patient is to follow up Dr. Balderas in approximately 6 to 8 weeks. Dictated by... Marie Mar M.D. DAVE/teodora TD: 05/26/2017 11:32 JOB #: [id number] DISCHARGE SUMMARY Page 1 of 1 X Marie Mar MD X DISCHARGE SUMMARY
--- NOTE | ~2017-05-20 | OR ---
Unit #: [id number] #: [id number] Patient: TATO JOE [id number] [address] [place], [place] [address] [id number] MR#: [id number] NAME: TATO JOE ROOM: 47 Date of Procedure: 05/22/2017 Admission Date: 05/20/2017 Surgeon: Brandon Chery M.D. : 1960 Attending Physician: Marie Mar M.D. Primary Care Physician: Yousif Rosales M.D. OPERATIVE REPORT PREOPERATIVE DIAGNOSIS Epigastric pain. POSTOPERATIVE DIAGNOSIS Epigastric pain. PROCEDURES PERFORMED 1. Esophagogastroduodenoscopy. 2. Biopsy of antrum for Helicobacter pylori testing. ANESTHESIA Monitored anesthesia care. FINDINGS The patient was found to have a small hiatal hernia and mild gastritis. SPECIMENS Sent to pathology. COMPLICATIONS None apparent. CONDITION The patient tolerated the procedure well. INDICATIONS FOR PROCEDURE The patient is a 56-year-old white female, who presents at this time with epigastric pain and discomfort. She has a history of pancreatitis. She presents at this time for evaluation by upper endoscopy. DESCRIPTION OF PROCEDURE After obtaining informed consent, the patient was brought to the endoscopy suite and after adequate monitored anesthesia care, had the endoscope placed through the mouth into the upper esophagus under direct vision. It was advanced to the second portion of the duodenum without difficulty and with the lumen always in view. The duodenum was within normal limits as was the duodenal bulb. The pylorus opened normally. There was some mild distal gastritis present and a biopsy was obtained for Helicobacter pylori testing. On retroflexion back to the GE junction, the patient was found to have a small hiatal hernia. No other abnormalities were found in the proximal third, middle third, or incisura. On pulling back above the GE Unit #: [id number] #: [id number] Patient: TATO JOE junction, there was no stenosis, stricture, or neoplasm seen. There was no significant esophagitis. The remaining portion of the esophagus was within normal limits. Laryngeal structures were grossly normal as viewed from above. The patient went from the endoscopy suite to recovery area in stable condition. We will proceed with HIDA CCK study later today. Dictated by... Brandon Chery M.D. MARLON/teodora TD: 05/22/2017 18:31 JOB #: [id number] CC: [facility] OPERATIVE REPORT Page 1 of 1 X Brandon Chery MD PROCEDURE OPERATIVE NOTE
--- NOTE | ~2017-05-20 | CT2 ---
[facility] A Service of [facility] RADIOLOGY TEXT RESULTS PATIENT: TATO JOE LOCATION: [facility]- : 60 UNIT #: [id number] AGE: [address]: Marie Mar MD SEX: F ORDER DR: [id number] [facility] [address] [facility]. [place], [place] [address] [id number] I MR#: [id number] Acc #: [id number] NAME: TATO JOE : 1960 SEX: F STUDY DATE/TIME: 05/20/2017 17:28 UNIT: [facility] ROOM: 04108 STUDY DESCRIPTION: CT Abd and Pelv W Cont Attending Physician: Justino Vernon M.D. Ordering Physician: Aravind Clifford D.O. Primary Care Physician: Yousif Rosales M.D. MEDICAL IMAGING REPORT This report is preliminary unless electronic signature is present EXAM CT abdomen and pelvis with IV contrast. COMPARISON February 21, 2017 and May 10, 2016. INDICATIONS 56-year-old female with left upper quadrant abdominal pain and nausea for 4 days. History of pancreatitis with pancreatic cyst. TECHNIQUE This CT exam was performed with one or more of the following radiation dose reduction techniques: automatic exposure control, adjustment of mA and/or kV according to patient size, and iterative reconstruction. FINDINGS Axial CT imaging of the abdomen and pelvis was performed after IV administration of 100 mL Isovue-370. Coronal and sagittal reformats were constructed. New somewhat nodular appearing density in the subcutaneous fat of the left buttock measured up to 1.7 cm, perhaps reflecting injection granuloma or focal post-traumatic change of uncertain etiology. Multilevel degenerative facet disease of the lumbar spine most significant at L4-L5 where is moderate. Degenerative geode seen in the roof of the left acetabulum measuring up to 2.1 cm. Mild subchondral cystic change is seen in the roof of the right acetabulum. No acute fractures or suspicious osseous lesions. No acute findings in the imaged lower chest. The liver, gallbladder, spleen, adrenal glands and kidneys are unremarkable. Common bile duct currently measures up to a centimeter as compared to 0.8 cm on February 21, 2017. No definite obstructing lesion is seen and this is a nonspecific finding. There is stable cyst at the junction of the pancreatic body and head which is exophytic extending anteriorly, measuring up to 3.8 cm x 1.4 cm by approximately 1.1 cm. This [facility] A Service of [facility] RADIOLOGY TEXT RESULTS PATIENT: TATO JOE LOCATION: [place] [address] : [birth year] UNIT #: [id number] AGE: [address]: Marie Mar MD SEX: F ORDER DR: most likely represents a chronic pseudocyst. No evidence of acute pancreatitis. No hydronephrosis or hydroureter. No evidence of renal or ureteral calculus. Urinary bladder is unremarkable. There has been prior hysterectomy. No adnexal masses are seen. No evidence of bowel obstruction. Prior appendectomy. No free fluid or pneumoperitoneum. There is a small hiatal hernia. There is diffuse calcified and noncalcified plaque in the abdominal aorta. The main branches of the abdominal aorta are widely patent. No evidence of venous thrombosis. IMPRESSION 1. Slightly increased caliber of the common bile duct measuring up to 1 cm as compared to 0.8 cm on February 21, 2017. This is a nonspecific finding and the common bile duct appears to taper normally at its distal aspect. Consider correlation with laboratory values to exclude significant biliary obstruction. If indicated, nonemergent MRCP could be performed for further evaluation. 2. Stable size of pancreatic pseudocyst. No evidence of acute pancreatitis. 3. New 1.7 cm nodular density within the fat of the left buttocks, possibly due to remote trauma or injection granuloma, but new from February 21, 2017. 4. Mild degenerative changes of both hips. 5. Prior appendectomy and hysterectomy. 6. Small hiatal hernia. Dictated by... Kaiden Raymond M.D. THIS IS AN ELECTRONICALLY VERIFIED REPORT Kaiden Raymond M.D. at 05/25/2017 1:25 PM [place] TD: 05/20/2017 23:33 JOB #: [id number] MEDICAL IMAGING REPORT Page 1 of 1 COPY
--- NOTE | ~2017-05-20 | HP ---
Unit #: [id number] #: [id number] Patient: TATO JOE [id number] [address] [address] [id number] I MR#: [id number] NAME: TATO JOE ROOM: 316 Age: 56 Sex: F Admission Date: 05/20/2017 : 1960 Attending Physician: Marie Mar M.D. Primary Care Physician: Yousif Rosales M.D. HISTORY AND PHYSICAL CHIEF COMPLAINT Abdominal pain. DISCUSSION This is a 56-year-old female, with past medical history of chronic pancreatitis with history of pancreatic acidosis, hypertension, hyperlipidemia, migraine, history of herpes zoster, B12 deficiency, skin cancer, depression. She presented to the emergency room with chief complaint of having abdominal pain which actually she came yesterday, in the emergency room, but she left without seeing any doctor. She came back again today with diffuse upper abdominal pain and on workup she was found to be hyponatremic, sodium acute on possible pancreatitis, though CT scan shows slightly increased in common bile duct size, 1 cm, otherwise stable pancreatic acidosis, and the patient being eventually admitted for abdominal pain. She says that she has been having diffuse abdominal pain for four days which got progressively worse. She has been taking pain medication which is not helping. She has been feeling very nauseous but denied chest pain, diaphoresis, palpitation, or any other complaint. PAST MEDICAL HISTORY 1. History of chronic pancreatitis, she had ERCP with stent placement in December 2016. She had an admission in January for pancreatitis. 2. History of chronic pancreatitis follows with Dr. Balderas. 3. Hypertension. 4. Hyperlipidemia. 5. Migraine headache. 6. B12 deficiency. 7. Herpes Zoster. 8. History of depression. 9. Skin cancer. PAST SURGICAL HISTORY 1. Excision of skin cancer. 2. Hysterectomy. 3. Lap band removal. 4. Appendectomy. 5. ERCP with pancreatic stent. 6. History of carpal release bilateral hands. 7. Left ovarian cyst removal. SOCIAL HISTORY The patient lives with her son and her who is a highway truck driver. She says smokes five cigarettes daily. She denies alcohol or other illicit drug use. She is a full code. Unit #: [id number] #: [id number] Patient: TATO JOE FAMILY HISTORY Notable for mother having hypertension. HOME MEDICATIONS Medications from home is the followin. Neurontin 800 mg three times a day 2. Amitriptyline 25 mg p.o. q.h.s. 3. Percocet 7.5/325 q.6h p.r.n. 4. Fenofibrate daily 5. Amlodipine REVIEW OF SYSTEMS Negative except as in history of present illness. PHYSICAL EXAMINATION GENERAL: Middle-aged female lying in the bed comfortably, currently not in any distress. She is alert, awake, and oriented x3, comfortable, not in any distress. VITAL SIGNS: Current vitals are the following, temperature 98.9, heart rate 103, respirations 16, and blood pressure 150/112, oxygen 99% on room air. HEENT EXAMINATION: Pupils equal reactive to light and accommodation. Head: Normocephalic and atraumatic. NECK: Supple. No jugular venous distention. No thyromegaly. Trachea midline. LUNGS: Clear to auscultation bilaterally. No rhonchi. No wheezing. HEART: S1 and S2 regular rate and rhythm. ABDOMEN: Soft, diffuse upper abdominal tenderness, positive bowel sounds. EXTREMITIES: Inspection normal. No cyanosis, no clubbing, and no edema. NEUROLOGIC: Alert and oriented x4, follow commands. No focal neurologic deficit. PSYCHIATRIC: Normal mood and affect, she is cooperative. SKIN: Warm and dry. DIAGNOSTIC STUDIES LABORATORY: Laboratory workup is the following, troponin less than 0.05. Urinalysis is negative. Chemistry, sodium 125, potassium 3.8, chloride 91, glucose 92, BUN 7, creatinine 0.7. LFT within normal limits. Lipase 80, amylase 7. White count 9.6, hemoglobin 13, hematocrit 31, platelets 374. IMAGING: CT of the abdomen shows a stable pancreatic acidosis, increase in common bile duct size, common bile duct 1 cm. ASSESSMENT/PLAN 1. Sjjab-jh-gbywrfx abdominal pain, most likely exacerbation of chronic pancreatitis, keep the patient on clear liquid diet, IV fluids, pain control with Dilaudid, ask Dr. Balderas to evaluate. 2. Hyponatremia, IV fluids, recheck TSH. 3. Stable pancreatic acidosis. 4. Hypertension. 5. Hyperlipidemia. 6. History of migraine. 7. History of herpes zoster. 8. History of ERCP in December 2016 with pancreatic stent. 9. DVT prophylaxis. Place the patient on Lovenox. 10. GI prophylaxis. Place on IV Protonix while in the hospital. Unit #: [id number] #: [id number] Patient: TATO JOE Dictated by Angeles Solitario/maria elena TD: 05/21/2017 11:07 JOB #: [id number] HISTORY AND PHYSICAL Page 1 of 1 X X HISTORY AND PHYSICAL
--- NOTE | ~2017-05-20 | NM22 ---
[facility] A Service of [facility] RADIOLOGY TEXT RESULTS PATIENT: TATO JOE LOCATION: [place] [address] : [birth year] UNIT #: [id number] AGE: [address]: Marie Mar MD SEX: F ORDER DR: [id number] [facility] [address] [place] [facility] [place], [place] [address] [id number] MR#: [id number] Acc #: [id number] NAME: TATO JOE : 1960 SEX: F STUDY DATE/TIME: 05/22/2017 14:56 UNIT: [facility] ROOM: [facility] STUDY DESCRIPTION: NM Hepatobiliary W GB Pharm Attending Physician: Marie Mar M.D. Ordering Physician: Marie Mar M.D. Primary Care Physician: Yousif Rosales M.D. MEDICAL IMAGING REPORT This report is preliminary unless electronic signature is present EXAM Hepatobiliary scan HISTORY Nausea and vomiting. Abdomen and back pain for 1 year. FINDINGS Hepatobiliary scan was performed following injection of 6.0 mCi technetium Choletec. There is prompt tracer uptake throughout the liver with excretion into the central bile duct within 15 minutes. Progressive hepatic washout with increased small bowel activity up to 2 hours. There was faint tracer excretion into the gallbladder at 90 minutes. Kinevac was not administered. IMPRESSION Normal hepatic biliary scan with faint tracer excretion in the gallbladder at 90 minutes. Kinevac was not administered. Dictated by... Ken Irvin M.D. THIS IS AN ELECTRONICALLY VERIFIED REPORT Ken Irvin M.D. at 05/23/2017 2:17 PM DFL/wili TD: 05/23/2017 11:38 JOB #: [id number] MEDICAL IMAGING REPORT [facility] A Service of [facility] RADIOLOGY TEXT RESULTS PATIENT: TATO JOE LOCATION: [facility]11-06 : [birth year] UNIT #: [id number] AGE: [address]: Marie Mar MD SEX: F ORDER DR: Page 1 of 1 COPY
[2017-05-20 16:02] LABS: BASOPHIL# 0.1 X10e3 (0-0.3); BASOPHIL% 0.8 % (0-2.5); DIFF IND NO; EOSINOPHIL# 0.1 X10e3 (0-0.7); EOSINOPHIL% 1.2 % (0.0-7.0); HEMATOCRIT 41.4 % (35.0-45.0); HEMOGLOBIN 13.9 gm/dL (12.0-16.0); LYMPHOCYTE# 3.1 X10e3 (1.0-3.5); LYMPHOCYTE% 32.1 % (17.0-45.0); MEAN CELL VOLUME 91.5 FL (83-96); MEAN CORPUSCULAR HEMOGLOBIN 30.8 PG (28-34); MEAN CORPUSCULAR HGB CONC 33.6 g/dL (30-36); MEAN PLATELET VOLUME 7.6 FL (6.5-11.5); MONOCYTE# 0.5 X10e3 (0-1.0); MONOCYTE% 5.3 % (3.0-12.0); NEUTROPHIL# 5.8 X10e3 (1.5-7.1); NEUTROPHIL% 60.6 % (40-75); PLATELET COUNT 374 X10e3 (140-420); RED BLOOD COUNT 4.52 X10e (3.90-5.30); RED CELL DISTRIBUTION WIDTH 14.1 % (11.0-15.5); WHITE BLOOD COUNT 9.6 X10e3 (4.0-10.5)
[2017-05-20 16:43] LABS: ALBUMIN SERUM 4.1 g/dL (3.5-5.0); ALKALINE PHOSPHATASE 87 U/L (32-92); ALT (SGPT) 7 U/L (10-40); AMYLASE 7 U/L (0-46); AST (SGOT) 12 U/L (10-42); BILIRUBIN,TOTAL 0.5 mg/dL (0.2-2.0); BLOOD UREA NITROGEN 7 mg/dL (9-23); CARBON DIOXIDE 23 mmol/L (22-31); CHLORIDE 91 mmol/L (100-111); CREATININE SERUM 0.7 mg/dL (0.6-1.4); GLOM FILT RATE Estimated 96.9 mL/min (>60); GLUCOSE FASTING 92 mg/dL (70-110); LIPASE 18 U/L (22-51); POTASSIUM 3.8 mmol/L (3.5-5.1); PROTEIN TOTAL SERUM 7.6 g/dL (6.0-8.3)
[2017-05-20 16:55] LABS: BILIRUBIN, DIRECT <0.1 mg/dL (0.0-0.2); BILIRUBIN,INDIRECT 0.4 mg/dL (0.0-0.9); SODIUM 125 mmol/L (135-145)
[2017-05-20 17:19] LABS: URINE SOURCE CLEAN CATCH
[2017-05-20 17:25] LABS: URINE APPEARANCE CLEAR; URINE BILIRUBIN NEG (NEG); URINE BLOOD NEG (NEG); URINE COLOR YELLOW; URINE GLUCOSE NEG (NEG); URINE KETONE NEG (NEG); URINE LEUKOCYTE ESTERASE NEG (NEG); URINE NITRATE NEG (NEG); URINE PH 6.5 (5-8); URINE PROTEIN NEG (NEG); URINE SPECIFIC GRAVITY 1.006 (1.003-1.035); URINE UROBILINOGEN 0.2 MG/DL (NEG)
[2017-05-20 17:39] LABS: CULTURE INDICATED? NO
[2017-05-20 18:48] LABS: POC - CKMB <1.0 ng/mL (0.0-7.9); POC - TROPONIN <0.05 ng/mL (<=0.05)
[2017-05-20] MEDS ORDERED: NEURONTIN800 MG PO (21:46)
[2017-05-20] MEDS ORDERED: AMITRYPTYLINE PO (21:47)
[2017-05-20] MEDS ORDERED: FENOFIBRATE50 MG PO (21:49)
[2017-05-21 07:29] LABS: BASOPHIL% 0.4 % (0-2.5); EOSINOPHIL# 0.2 X10e3 (0-0.7); EOSINOPHIL% 1.8 % (0.0-7.0); HEMATOCRIT 37.3 % (35.0-45.0); HEMOGLOBIN 12.6 gm/dL (12.0-16.0); LYMPHOCYTE# 2.6 X10e3 (1.0-3.5); LYMPHOCYTE% 29.9 % (17.0-45.0); MEAN CELL VOLUME 93.2 FL (83-96); MEAN CORPUSCULAR HEMOGLOBIN 31.3 PG (28-34); MEAN CORPUSCULAR HGB CONC 33.7 g/dL (30-36); MEAN PLATELET VOLUME 7.7 FL (6.5-11.5); MONOCYTE# 0.5 X10e3 (0-1.0); MONOCYTE% 5.6 % (3.0-12.0); NEUTROPHIL# 5.3 X10e3 (1.5-7.1); NEUTROPHIL% 62.3 % (40-75); PLATELET COUNT 292 X10e3 (140-420); RED BLOOD COUNT 4.01 X10e (3.90-5.30); RED CELL DISTRIBUTION WIDTH 14.2 % (11.0-15.5); WHITE BLOOD COUNT 8.6 X10e3 (4.0-10.5)
[2017-05-21 07:37] LABS: DIFF IND NO
[2017-05-21 08:18] LABS: ALBUMIN SERUM 3.2 g/dL (3.5-5.0); BILIRUBIN,TOTAL 0.4 mg/dL (0.2-2.0); BUN/CREATININE RATIO 11.42; CALCIUM SERUM 8.6 mg/dL (8.4-10.2); CREATININE SERUM 0.7 mg/dL (0.6-1.4); GLOM FILT RATE Estimated 96.9 mL/min (>60); POTASSIUM 3.8 mmol/L (3.5-5.1); PROTEIN TOTAL SERUM 5.8 g/dL (6.0-8.3)
[2017-05-22 05:48] LABS: HEMOGLOBIN 11.9 gm/dL (12.0-16.0); MEAN CORPUSCULAR HEMOGLOBIN 31.1 PG (28-34); MEAN CORPUSCULAR HGB CONC 33.1 g/dL (30-36); MEAN PLATELET VOLUME 7.9 FL (6.5-11.5); RED BLOOD COUNT 3.83 X10e (3.90-5.30); RED CELL DISTRIBUTION WIDTH 14.3 % (11.0-15.5); WHITE BLOOD COUNT 6.1 X10e3 (4.0-10.5)
[2017-05-22 06:56] LABS: BUN/CREATININE RATIO 6.25; CALCIUM SERUM 8.6 mg/dL (8.4-10.2); CREATININE SERUM 0.8 mg/dL (0.6-1.4); GLOM FILT RATE Estimated 82.5 mL/min (>60); POTASSIUM 4.6 mmol/L (3.5-5.1)
[2017-05-23 03:07] LABS: BLOOD UREA NITROGEN <5 mg/dL (9-23); BUN/CREATININE RATIO 7.14; CALCIUM SERUM 8.7 mg/dL (8.4-10.2); CARBON DIOXIDE 29 mmol/L (22-31); CHLORIDE 97 mmol/L (100-111); CREATININE SERUM 0.7 mg/dL (0.6-1.4); GLOM FILT RATE Estimated 96.9 mL/min (>60); GLUCOSE FASTING 74 mg/dL (70-110); POTASSIUM 3.7 mmol/L (3.5-5.1); SODIUM 131 mmol/L (135-145)
[2017-05-23] MEDS ORDERED: PROTONIX PO (13:30)
== END 2017-05-23 15:25 | disposition home or self-care (01) | DRG 392 ==
LOC: CED 14:04 → C4C 20:30 → CEDOF 20:30 → CED 22:18 → CEDOF 22:18 → C3A PCU 05-21 08:50 → C4C 05-22 23:19
PROVIDERS: Emergency Medicine; Internal Medicine; Surgery
PROC: 0DB78ZX Excision of Stomach, Pylorus, Via Natural or Artificial Opening Endoscopic, Diagnostic (ICD-10-PCS; principal; 2017-05-22 07:57)
DX: K29.70 Gastritis, unspecified, without bleeding (principal); E87.2 Acidosis; K86.3 Pseudocyst of pancreas; E44.1 Mild protein-calorie malnutrition; E87.1 Hypo-osmolality and hyponatremia; I10 Essential (primary) hypertension; E78.5 Hyperlipidemia, unspecified; K44.9 Diaphragmatic hernia without obstruction or gangrene; R10.13 Epigastric pain
CPT/HCPCS: 36415; 74177; 78227; 80048; 80053; 80061; 80076; 81003; 82150; 82553; 83690; 84443; 84484; 85025; 85027; 87077; 96365; 96366; 96375; 96376; 99284; A9537; C9113; J0696; J1170; J1650; J2250; J2270; J2405; Q9967

== ENCOUNTER 2017-06-16 18:26 | Emergency (ER) | payer OTHER ==
[~2017-06-16] VITALS: Ht 157.5 cm; Wt 52.2 kg
[~2017-06-16 18:26] MED LIST changes: +FENOFIBRATE50 MG PO
[2017-06-16 18:49] LABS: BASOPHIL# 0.1 X10e3 (0-0.3); BASOPHIL% 0.6 % (0-2.5); EOSINOPHIL% 0.4 % (0.0-7.0); HEMATOCRIT 38.4 % (35.0-45.0); HEMOGLOBIN 13.5 gm/dL (12.0-16.0); LYMPHOCYTE% 28.3 % (17.0-45.0); MEAN CELL VOLUME 92.1 FL (83-96); MEAN CORPUSCULAR HEMOGLOBIN 32.4 PG (28-34); MEAN CORPUSCULAR HGB CONC 35.2 g/dL (30-36); MEAN PLATELET VOLUME 7.1 FL (6.5-11.5); MONOCYTE# 0.4 X10e3 (0-1.0); MONOCYTE% 3.8 % (3.0-12.0); NEUTROPHIL% 66.9 % (40-75); PLATELET COUNT 377 X10e3 (140-420); RED BLOOD COUNT 4.17 X10e (3.90-5.30); RED CELL DISTRIBUTION WIDTH 14.8 % (11.0-15.5); WHITE BLOOD COUNT 10.5 X10e3 (4.0-10.5)
[2017-06-16 18:50] LABS: DIFF IND NO
[2017-06-16 19:37] LABS: ALBUMIN SERUM 4.2 g/dL (3.5-5.0); ALKALINE PHOSPHATASE 88 U/L (32-92); ALT (SGPT) 10 U/L (10-40); AMYLASE 9 U/L (0-46); AST (SGOT) 13 U/L (10-42); BILIRUBIN,TOTAL 0.5 mg/dL (0.2-2.0); BLOOD UREA NITROGEN 5 mg/dL (9-23); BUN/CREATININE RATIO 6.25; CARBON DIOXIDE 22 mmol/L (22-31); CHLORIDE 94 mmol/L (100-111); CREATININE SERUM 0.8 mg/dL (0.6-1.4); GLOM FILT RATE Estimated 81.9 mL/min (>60); GLUCOSE FASTING 105 mg/dL (70-110); LIPASE 15 U/L (22-51); POTASSIUM 3.5 mmol/L (3.5-5.1); PROTEIN TOTAL SERUM 7.5 g/dL (6.0-8.3); SODIUM 126 mmol/L (135-145)
[2017-06-16 19:38] LABS: BILIRUBIN, DIRECT <0.1 mg/dL (0.0-0.2); BILIRUBIN,INDIRECT 0.4 mg/dL (0.0-0.9)
== END 2017-06-16 20:56 | disposition left against medical advice (07) ==
LOC: CED 18:26
DX: Z53.21 Procedure and treatment not carried out due to patient leaving prior to being seen by health care provider (principal)
CPT/HCPCS: 80048; 80076; 82150; 83690; 85025

== ENCOUNTER 2017-06-17 17:59 | Emergency (ER) | payer OTHER ==
[~2017-06-17] VITALS: Ht 157.5 cm; Wt 52.2 kg
[2017-06-17 18:48] LABS: BASOPHIL% 0.4 % (0-2.5); DIFF IND NO; EOSINOPHIL# 0.1 X10e3 (0-0.7); EOSINOPHIL% 0.9 % (0.0-7.0); HEMATOCRIT 38.2 % (35.0-45.0); HEMOGLOBIN 13.2 gm/dL (12.0-16.0); LYMPHOCYTE# 2.7 X10e3 (1.0-3.5); LYMPHOCYTE% 29.9 % (17.0-45.0); MEAN CELL VOLUME 91.7 FL (83-96); MEAN CORPUSCULAR HEMOGLOBIN 31.6 PG (28-34); MEAN CORPUSCULAR HGB CONC 34.4 g/dL (30-36); MEAN PLATELET VOLUME 7.2 FL (6.5-11.5); MONOCYTE# 0.5 X10e3 (0-1.0); MONOCYTE% 5.3 % (3.0-12.0); NEUTROPHIL# 5.6 X10e3 (1.5-7.1); NEUTROPHIL% 63.5 % (40-75); PLATELET COUNT 372 X10e3 (140-420); RED BLOOD COUNT 4.17 X10e (3.90-5.30); RED CELL DISTRIBUTION WIDTH 14.3 % (11.0-15.5); WHITE BLOOD COUNT 8.9 X10e3 (4.0-10.5)
[2017-06-17 19:15] LABS: ALBUMIN SERUM 4.1 g/dL (3.5-5.0); BILIRUBIN, DIRECT 0.1 mg/dL (0.0-0.2); BILIRUBIN,INDIRECT 0.5 mg/dL (0.0-0.9); BILIRUBIN,TOTAL 0.6 mg/dL (0.2-2.0); BUN/CREATININE RATIO 8.57; CALCIUM SERUM 9.1 mg/dL (8.4-10.2); CREATININE SERUM 0.7 mg/dL (0.6-1.4); GLOM FILT RATE Estimated 96.2 mL/min (>60); POTASSIUM 3.6 mmol/L (3.5-5.1); PROTEIN TOTAL SERUM 7.1 g/dL (6.0-8.3)
== END 2017-06-17 20:38 | disposition home or self-care (01) ==
LOC: CED 17:59
PROVIDERS: Emergency Medicine
DX: K29.00 Acute gastritis without bleeding (principal); I10 Essential (primary) hypertension; F17.200 Nicotine dependence, unspecified, uncomplicated; Z88.5 Allergy status to narcotic agent; Z88.8 Allergy status to other drugs, medicaments and biological substances
CPT/HCPCS: 36415; 80048; 80076; 82150; 83690; 85025; 96361; 96374; 96375; 99284; J2270; J2550